=== PATIENT | female | born 1960 ===

== ENCOUNTER 2017-12-17 16:18 | Emergency (ER) | payer BC ==
[2017-12-17 16:28] VITALS: O2SAT 100
[2017-12-17 17:06] LABS: SQUAMOUS EPITHIAL < 1 /hpf (0-5); URINE BILIRUBIN NEGATIVE (NEGATIVE); URINE BLOOD 1+ (NEGATIVE); URINE CLARITY Clear (Clear); URINE COLOR Straw (YELLOW); URINE GLUCOSE (UA) NORMAL (Normal); URINE LEUKOCYTE ESTERASE NEG Leu/uL (Negative); URINE PROTEIN NEGATIVE (NEGATIVE); URINE UROBILINOGEN NORMAL mg/dL (0.2-1.0)
--- NOTE | 2017-12-17 17:52 | C.PDOC ---
History Of Present Illness 57 yo female come in for evaluation of left groin/suprapubic pain developed since this AM. pain is sharp, intermittent associated with lower back pain. Otherwise, pt denies fever, chills, recent illness, CP, SOB, dyspnea, diaphoresis, abd. pain, V/D, hematuria, vaginal irritation or discharges. Ambulate to ED for evaluation, not in any apparent distress. Time Seen by Provider: 12/17/17 16:42 Chief Complaint (Nursing): Female Genitourinary History Per: Patient Onset/Duration Of Symptoms: Gradual Past Medical History Reviewed: Historical Data, Nursing Documentation, Vital Signs Vital Signs: Last Vital Signs Temp 98.4 F 12/17/17 18:21 Pulse 74 12/17/17 18:21 Resp 18 12/17/17 18:21 BP 132/86 12/17/17 18:21 Pulse Ox 100 12/17/17 18:21 - Medical History PMH: Hypercholesterolemia Surgical History: No Surg Hx Family History: States: No Known Family Hx - Social History Hx Alcohol Use: No Hx Substance Use: No - Immunization History Hx Tetanus Toxoid Vaccination: No Hx Influenza Vaccination: No Hx Pneumococcal Vaccination: No Review Of Systems Except As Marked, All Systems Reviewed And Found Negative. Constitutional: Negative for: Fever, Chills ENT: Negative for: Throat Pain, Throat Swelling Cardiovascular: Negative for: Chest Pain, Palpitations, Light Headedness Respiratory: Negative for: Cough, Shortness of Breath, Wheezing Gastrointestinal: Negative for: Nausea, Vomiting, Abdominal Pain, Diarrhea Genitourinary: Positive for: Other (Letf groin pain). Negative for: Hematuria, Vaginal Discharge, Vaginal Bleeding Musculoskeletal: Positive for: Back Pain. Negative for: Neck Pain Skin: Negative for: Rash Neurological: Negative for: Headache Physical Exam - Physical Exam Appears: Well, Non-toxic, No Acute Distress Skin: Normal Color, Warm, Dry, No Rash Head: Normacephalic Eye(s): bilateral: PERRL Nose: No Flaring Throat: No Erythema Neck: Trachea Midline, Supple Cardiovascular: Rhythm Regular Respiratory: No Decreased Breath Sounds, No Accessory Muscle Use, No Stridor, No Wheezing Gastrointestinal/Abdominal: Soft, Tenderness (mild suprapubic), No Distention, No Guarding, No Rebound Back: No CVA Tenderness, Paraspinal Tenderness (diffuse lumbar ) Pelvic: Vaginal Discharge (scant thick white discharges), No Cervical Motion Tenderness, No Adnexal Tenderness, No Mass Extremity: Normal ROM, No Deformity, No Swelling Neurological/Psych: Oriented x3, Normal Speech, Normal Motor, Normal Sensation, Normal Reflexes ED Course And Treatment O2 Sat by Pulse Oximetry: 100 Pulse Ox Interpretation: Normal Progress Note: On re-eval, pt is afebrile, hemodynamicaly stable. Non-toxic. Tolerate Po well in ED. ENT: no acute findings. Neck: Supple, (-) meningeal sign. Lungs: CTA B/L, BS equal B/L. CVS: (+)S1S2, reg. Abd: soft, NT/ND, (-) guarding, (-) rebound. back: (-) CVA tenderness. UA results review and normal. Pt has clinical findings c/w dysuria, vulvovaginitis. Pt advised. ref. to f/u with [facility] in 2-3 days for re-eval. return if any new changes. Disposition Counseled Patient/Family Regarding: Studies Performed, Diagnosis, Need For Followup, Rx Given - [facility]position [facility] Disposition: HOME/ ROUTINE Disposition Time: 17:49 Condition: STABLE Additional Instructions: Encourage fluids Take medication as prescribed Follow up with [facility] in 2-3 days for re-evaluation. Return to ED if any worsening or new changes. Prescriptions: Ciprofloxacin [Cipro] 1 tab PO BID #6 tab Miconazole 2% Vaginal [Monistat 7 Vaginal Cream] 1 applic VG HS #1 tube Instructions: Vulvovaginal Yeast Infection, Dysuria, Adult (DC) Forms: [employer] (Czech) - Clinical Impression Clinical Impression: Candidal vulvovaginitis, Dysuria
[2017-12-17 18:21] VITALS: BP 132/86; PULSE 74; RESP 18; TEMP 98.4
== END 2017-12-17 18:23 | disposition home or self-care (01) ==
LOC: C.ER 16:18
DX: B37.3 Candidiasis of vulva and vagina (principal); R30.0 Dysuria